=== PATIENT | male | born 1980 | race Caucasian/White ===

== ENCOUNTER → 2021-11-23 | Outpatient (CLI) | payer OTHER | LOC: HEART 5 10:58 | DX: R00.2 Palpitations (principal); R00.0 Tachycardia, unspecified ==

== ENCOUNTER 2022-02-19 17:19 | Emergency (ER) | payer OTHER ==
[2022-02-19 18:37] LABS: HEMOGLOBIN 14.5 gm/dl (14.0-17.5); RED BLOOD COUNT 4.73 M/UL (4.20-5.50); WHITE BLOOD COUNT 6.1 K/UL (4.5-11.0)
[2022-02-19 18:58] LABS: BUN/CREATININE RATIO 16 (0-10)
== END 2022-02-19 19:19 | disposition left against medical advice (07) ==
LOC: ER1 17:19
DX: R79.9 Abnormal finding of blood chemistry, unspecified (principal); F17.210 Nicotine dependence, cigarettes, uncomplicated
CPT/HCPCS: 80053; 80185; 85025; 99281